=== PATIENT | female | born 1985 ===

== ENCOUNTER 2018-03-03 09:53 | Outpatient (CLI) | payer OTHER ==
[~2018-03-03] VITALS: Ht 157.5 cm; Wt 68.0 kg
== END 2018-03-03 10:15 | disposition home or self-care (01) ==
LOC: OFIC 805 09:53
DX: H90.12 Conductive hearing loss, unilateral, left ear, with unrestricted hearing on the contralateral side (principal); H72.02 Central perforation of tympanic membrane, left ear; J31.0 Chronic rhinitis

== ENCOUNTER 2018-04-30 10:28 | Outpatient (CLI) | payer OTHER ==
[~2018-04-30] VITALS: Ht 152.4 cm; Wt 68.0 kg
== END 2018-04-30 10:45 | disposition home or self-care (01) ==
LOC: OFIC 805 10:28
DX: H72.02 Central perforation of tympanic membrane, left ear (principal); J31.0 Chronic rhinitis

== ENCOUNTER 2019-12-09 10:42 | Outpatient (CLI) | payer OTHER | END 2019-12-09 11:00 | disposition home or self-care (01) | LOC: SONOGRAMA 10:42 → MAMO-SONO 10:45 → SONOGRAMA 11:00 | DX: N60.11 Diffuse cystic mastopathy of right breast (principal); N60.12 Diffuse cystic mastopathy of left breast ==